=== PATIENT | male | born 1975 | race Caucasian/White ===

== ENCOUNTER 2016-11-18 09:57 | Emergency (ER) | payer BC ==
[2016-11-18 13:50] VITALS: BP 142/64
== END 2016-11-18 13:52 | disposition home or self-care (01) ==
LOC: ED 09:57
DX: M54.40 Lumbago with sciatica, unspecified side (principal); I10 Essential (primary) hypertension; E66.01 Morbid (severe) obesity due to excess calories
CPT/HCPCS: J1170; J1885; J7512; Q0162